=== PATIENT | male | born 1995 | race African-American/Black ===

== ENCOUNTER 2020-11-24 12:14 | Emergency (ER) | payer MEDICAID ==
[~2020-11-24] VITALS: Ht 177.8 cm; Wt 63.0 kg
[2020-11-24] MEDS ORDERED: DOXY100C2 MT (13:16)
[2020-11-24] MEDS ORDERED: DOXYCYCLINE HYCLATE 100MG CAPSULE PO ONE (13:45)
[2020-11-24] MEDS ORDERED: CEFTRIAXONE SODIUM 500 MG/VIAL IM ONE (13:45)
[2020-11-24] MEDS ORDERED: LIDOCAINE HCL 1% 20ML VIAL (Pyxis) INJ INFIL ONE (13:45)
[2020-11-24 13:49] LABS: CLARITY URINE CLEAR (CLEAR); COLOR URINE YELLOW (YELLOW); KETONES URINE NEGATIVE (NEGATIVE); LEUKOCYTE ESTERASE URINE 1+ (NEGATIVE); NITRITE URINE NEGATIVE (NEGATIVE); OCCULT BLOOD URINE NEGATIVE (NEGATIVE); PROTEIN URINE NEGATIVE (NEGATIVE); SPECIFIC GRAVITY URINE 1.021 (1.005-1.030); UROBILINOGEN URINE 0.2 E.U./dL (0.2-1.0)
[2020-11-24 14:11] VITALS: BP 128/57
[2020-11-26 16:39] LABS: NEISSERIA GONORRHOEAE NAA Negative (Negative)
== END 2020-11-24 14:12 | disposition home or self-care (01) ==
LOC: ER 12:14
DX: R30.0 Dysuria (principal)
CPT/HCPCS: 81003; 87086; 87491; 87591; 96372; 99283; J0696; J3490; Z7610

== ENCOUNTER 2020-12-19 18:07 | Emergency (ER) | payer MEDICAID ==
[~2020-12-19] VITALS: Ht 177.8 cm; Wt 65.0 kg
[~2020-12-19 18:07] MED LIST: DOXY100C2 MT
[2020-12-19 18:09] VITALS: BP 124/54
== END 2020-12-19 18:55 | disposition left against medical advice (07) ==
LOC: ER 18:11
DX: Z53.21 Procedure and treatment not carried out due to patient leaving prior to being seen by health care provider (principal)

== ENCOUNTER 2021-07-03 12:39 | Emergency (ER) | payer MEDICAID ==
[~2021-07-03] VITALS: Ht 172.7 cm; Wt 75.0 kg
[~2021-07-03 12:39] MED LIST changes: -DOXY100C2 MT; +DOXY100C5 MT
[2021-07-03] MEDS ORDERED: LIDOCAINE HCL/PF 1% 10 MG/ML 5ML VIAL INFIL ONE (14:30)
[2021-07-03] MEDS ORDERED: DOXYCYCLINE HYCLATE 100MG CAPSULE PO ONE (14:30)
[2021-07-03] MEDS ORDERED: DOXY100C5 MT (14:30)
[2021-07-03] MEDS ORDERED: CEFTRIAXONE SODIUM 500 MG/VIAL IM ONE (14:30)
[2021-07-03 14:56] VITALS: BP 125/63
[2021-07-03 14:59] LABS: COLOR URINE YELLOW (YELLOW); KETONES URINE NEGATIVE (NEGATIVE); LEUKOCYTE ESTERASE URINE TRACE (NEGATIVE); NITRITE URINE NEGATIVE (NEGATIVE); OCCULT BLOOD URINE NEGATIVE (NEGATIVE); PROTEIN URINE NEGATIVE (NEGATIVE); SPECIFIC GRAVITY URINE 1.024 (1.005-1.030)
[2021-07-03 15:00] LABS: CLARITY URINE CLOUDY (CLEAR)
[2021-07-06 04:12] LABS: NEISSERIA GONORRHOEAE NAA Negative (Negative)
== END 2021-07-03 14:57 | disposition home or self-care (01) ==
LOC: ER 12:39
DX: R30.0 Dysuria (principal)
CPT/HCPCS: 81003; 87491; 87591; 96372; 99283; J0696; J3490

== ENCOUNTER 2022-02-05 12:49 | Emergency (ER) | payer MEDICAID, OTHER ==
[~2022-02-05] VITALS: Ht 172.7 cm; Wt 68.0 kg
[2022-02-05] MEDS ORDERED: IBUP-2029 MT (13:23)
[2022-02-05] MEDS ORDERED: BO1 TP (13:23)
[2022-02-05] MEDS ORDERED: IBUPROFEN 600MG TABLET PO ONE (13:30)
[2022-02-05] MEDS ORDERED: BACITRACIN ZINC OINT UDPKT TOP ONE (13:30)
[2022-02-05 14:13] VITALS: BP 116/64
== END 2022-02-05 14:15 ==
LOC: ER 13:00
DX: S50.811A Abrasion of right forearm, initial encounter (principal); S50.11XA Contusion of right forearm, initial encounter; M79.632 Pain in left forearm; R20.0 Anesthesia of skin; Y35.813A Legal intervention involving manhandling, suspect injured, initial encounter; Y93.89 Activity, other specified; Y92.488 Other paved roadways as the place of occurrence of the external cause
CPT/HCPCS: 73090; 99283